=== PATIENT | female | born 1990 | race Caucasian/White ===

== ENCOUNTER 2017-12-01 10:51 | Emergency (ER) | payer MEDICAID ==
[~2017-12-01] VITALS: Ht 160 cm; Wt 67.1 kg
[2017-12-01 11:06] VITALS: BP 103/49
[2017-12-01] MEDS ORDERED: KETOROLAC TROMETH 60MG/2ML VIAL IM ONE (13:30)
== END 2017-12-01 13:44 | disposition home or self-care (01) ==
LOC: ER 10:51
DX: S46.811A Strain of other muscles, fascia and tendons at shoulder and upper arm level, right arm, initial encounter (principal); M77.9 Enthesopathy, unspecified; X50.3XXA Overexertion from repetitive movements, initial encounter; Y93.89 Activity, other specified; Y99.8 Other external cause status; Y92.89 Other specified places as the place of occurrence of the external cause
CPT/HCPCS: 96372; 99283; J1885